=== PATIENT | male | born 1980 | race Caucasian/White ===

== ENCOUNTER 2016-07-15 01:39 | Emergency (ER) | payer SELFPAY ==
[~2016-07-15] VITALS: Ht 177.8 cm; Wt 90.0 kg
[2016-07-15 01:47] VITALS: BP 178/109; PULSE 98; RESP 18; TEMP 97.8; O2SAT 96
--- NOTE | 2016-07-15 02:00 | PD ---
HPI Chief Complaint: Alcohol/Drug Intoxication Time Seen by Provider: 01:40 Travel History International Travel<30 days: No Contact w/Intl Traveler<30days: No Traveled to known affect area: No History of Present Illness HPI The patient is a 35-year-old male who presents emergency department for alcohol intoxication. The patient states his grandmother recently , he was sober for 3 months, but recently started drinking once again. The patient states he drank a fifth of Jagermeister last night. The patient states he does not feel "right", feels like he has numbness and tingling to the upper extremity is bilateral and feels "off". Patient also has intermittent thoughts of suicide, but does not have an actual suicide plan. He does note increasing depression after his grandmother and now feels sorry for drinking once again. He denies any hallucinations or delusions. Denies any chest pain, shortness breath, nausea, vomiting, or abdominal pain. Symptoms are moderate, possibly exacerbated by alcohol intake, and there are no current alleviating factors. COUNT INCLUDES THE [facility] Past Medical History Hypertension: Yes Medical other: Yes (ETOH ABUSE PER PATIENT ) Past Surgical History Abdominal Surgery: Yes ( hernia repair as an ) Social History Alcohol Use: Yes (pint of vodka per day) Tobacco Use: No (CIGARS OCC) Substance Use: Yes (etoh and marijuana) Allergies-Medications (Allergen,Severity, Reaction): Coded Allergies: Aspirin (Verified Allergy, Severe, 07/15/16) Reported Meds & Prescriptions Reported Meds & Active Scripts Active No Active Prescriptions or Reported Medications Review of Systems Except as stated in HPI: all other systems reviewed are Neg General / Constitutional: No: Fever Cardiovascular: No: Chest Pain or Discomfort Respiratory: No: Shortness of Breath Gastrointestinal: No: Nausea, Vomiting, Abdominal Pain Neurologic: Positive: Paresthesia, Sensory Disturbance Psychiatric: Positive: Depression, Suicidal Ideations, Substance Abuse Physical Exam Narrative GENERAL: Awake, alert, 35 year old who appears his stated age and is slightly intoxicated. SKIN: Focused skin assessment warm/dry. HEAD: Atraumatic. Normocephalic. EYES: Pupils equal and round. Pupils are 3 mm is bilateral and reactive. ENT: No nasal bleeding or discharge. Breath smells of alcohol. NECK: Trachea midline. No JVD. CARDIOVASCULAR: Regular rate and rhythm. No murmur appreciated. RESPIRATORY: No accessory muscle use. Clear to auscultation. Breath sounds equal bilaterally. GASTROINTESTINAL: Abdomen soft, non-tender, nondistended. No rebound tenderness. MUSCULOSKELETAL: No obvious deformities. No clubbing. No cyanosis. No edema. NEUROLOGICAL: Awake and alert. No obvious cranial nerve deficits. Motor grossly within normal limits. Normal speech. Nonfocal. Oriented 4. Follows commands without difficulty. PSYCHIATRIC: Appropriate mood and affect; insight and judgment normal. Data Data Last Documented VS Vital Signs Date Time Temp Pulse Resp B/P Pulse Ox O2 Delivery O2 Flow Rate FiO2 07/15/16 01:47 97.8 98 18 178/109 96 Room Air Orders Complete Blood Count With Diff (07/15/16 01:46) Comprehensive Metabolic Panel (07/15/16 01:46) Psych Screen (07/15/16 01:46) Drug Screen, Random Urine (07/15/16 01:46) Alcohol (Ethanol) (07/15/16 01:46) Labs Laboratory Tests Test 07/15/16 07/15/16 01:50 02:11 White Blood Count 7.5 TH/MM3 Red Blood Count 4.99 MIL/MM3 Hemoglobin 14.6 GM/DL Hematocrit 43.2 % Mean Corpuscular Volume 86.5 FL Mean Corpuscular Hemoglobin 29.3 PG Mean Corpuscular Hemoglobin 33.9 % Concent Red Cell Distribution Width 14.2 % Platelet Count 265 TH/MM3 Mean Platelet Volume 6.9 FL Neutrophils (%) (Auto) 44.7 % Lymphocytes (%) (Auto) 46.7 % Monocytes (%) (Auto) 7.6 % Eosinophils (%) (Auto) 0.6 % Basophils (%) (Auto) 0.4 % Neutrophils # (Auto) 3.3 TH/MM3 Lymphocytes # (Auto) 3.5 TH/MM3 Monocytes # (Auto) 0.6 TH/MM3 Eosinophils # (Auto) 0.0 TH/MM3 Basophils # (Auto) 0.0 TH/MM3 CBC Comment DIFF FINAL Differential Comment Sodium Level 143 MEQ/L Potassium Level 3.2 MEQ/L Chloride Level 106 MEQ/L Carbon Dioxide Level 27.6 MEQ/L Anion Gap 9 MEQ/L Blood Urea Nitrogen 6 MG/DL Creatinine 0.96 MG/DL Estimat Glomerular Filtration 90 ML/MIN Rate Random Glucose 132 MG/DL Calcium Level 8.3 MG/DL Total Bilirubin 0.2 MG/DL Aspartate Amino Transf 49 U/L (AST/SGOT) Alanine Aminotransferase 46 U/L (ALT/SGPT) Alkaline Phosphatase 104 U/L Total Protein 8.1 GM/DL Albumin 4.3 GM/DL Ethyl Alcohol Level 404 MG/DL Urine Opiates Screen NEG Urine Barbiturates Screen NEG Urine Amphetamines Screen NEG Urine Benzodiazepines Screen NEG Urine Cocaine Screen NEG Urine Cannabinoids Screen POS MDM Medical Decision Making Medical Screen Exam Complete: Yes Emergency Medical Condition: Yes Medical Record Reviewed: Yes Interpretation(s) Laboratory Tests Test 07/15/16 07/15/16 01:50 02:11 White Blood Count 7.5 TH/MM3 Red Blood Count 4.99 MIL/MM3 Hemoglobin 14.6 GM/DL Hematocrit 43.2 % Mean Corpuscular Volume 86.5 FL Mean Corpuscular Hemoglobin 29.3 PG Mean Corpuscular Hemoglobin 33.9 % Concent Red Cell Distribution Width 14.2 % Platelet Count 265 TH/MM3 Mean Platelet Volume 6.9 FL Neutrophils (%) (Auto) 44.7 % Lymphocytes (%) (Auto) 46.7 % Monocytes (%) (Auto) 7.6 % Eosinophils (%) (Auto) 0.6 % Basophils (%) (Auto) 0.4 % Neutrophils # (Auto) 3.3 TH/MM3 Lymphocytes # (Auto) 3.5 TH/MM3 Monocytes # (Auto) 0.6 TH/MM3 Eosinophils # (Auto) 0.0 TH/MM3 Basophils # (Auto) 0.0 TH/MM3 CBC Comment DIFF FINAL Differential Comment Sodium Level 143 MEQ/L Potassium Level 3.2 MEQ/L Chloride Level 106 MEQ/L Carbon Dioxide Level 27.6 MEQ/L Anion Gap 9 MEQ/L Blood Urea Nitrogen 6 MG/DL Creatinine 0.96 MG/DL Estimat Glomerular Filtration 90 ML/MIN Rate Random Glucose 132 MG/DL Calcium Level 8.3 MG/DL Total Bilirubin 0.2 MG/DL Aspartate Amino Transf 49 U/L (AST/SGOT) Alanine Aminotransferase 46 U/L (ALT/SGPT) Alkaline Phosphatase 104 U/L Total Protein 8.1 GM/DL Albumin 4.3 GM/DL Ethyl Alcohol Level 404 MG/DL Urine Opiates Screen NEG Urine Barbiturates Screen NEG Urine Amphetamines Screen NEG Urine Benzodiazepines Screen NEG Urine Cocaine Screen NEG Urine Cannabinoids Screen POS Differential Diagnosis Differential diagnosis includes alcohol intoxication, hyponatremia, hypocalcemia , depressive disorder NOS, adjustment reaction, substance abuse. Narrative Course IV was established, labs are drawn and sent, and the patient was placed on cardiac telemetry monitoring and continuous pulse oximetry monitoring. Alcohol level was sent to lab. Psychiatric evaluation was ordered. The patient's labs are unremarkable except for alcohol level of 44. Patient is medically clear to be evaluated by psychiatry. Disposition as per psych. Diagnosis Primary Impression: Substance induced mood disorder Additional Impression: Adjustment reaction Qualified Code: F43.21 - Adjustment disorder with depressed mood Scripts No Active Prescriptions or Reported Meds Condition: Stable Richmond Nails MD Jul 15, 2016 01:59
[2016-07-15 02:16] LABS: AUTOMATED NEUTROPHIL # 3.3 TH/MM3 (1.8-7.7); BASOPHIL % 0.4 % (0.0-2.0); EOSINOPHIL % 0.6 % (0.0-4.0); HEMATOCRIT 43.2 % (39.0-51.0); HEMO FLAGS DIFF FINAL; LYMPH % 46.7 % (9.0-44.0); LYMPHOCYTE # 3.5 TH/MM3 (1.0-4.8); MEAN CELL VOLUME 86.5 FL (80.0-100.0); MEAN CORPUSCULAR HEMOGLOBIN 29.3 PG (27.0-34.0); MEAN CORPUSCULAR HGB CONC 33.9 % (32.0-36.0); MONO % 7.6 % (0.0-8.0); NEUT % 44.7 % (16.0-70.0); PLATELET COUNT 265 TH/MM3 (150-450); RED BLOOD COUNT 4.99 MIL/MM3 (4.50-5.90); RED CELL DISTRIBUTION WIDTH 14.2 % (11.6-17.2); WHITE BLOOD COUNT 7.5 TH/MM3 (4.0-11.0)
[2016-07-15 02:26] LABS: AMPHETAMINE, URINE NEG (NEG); BARBITURATES, URINE NEG (NEG); COCAINE, URINE NEG (NEG)
[2016-07-15 02:37] LABS: ALT (GPT) 46 U/L (12-78); AST (GOT) 49 U/L (15-37); BICARBONATE 27.6 MEQ/L (21.0-32.0); BLOOD UREA NITROGEN 6 MG/DL (7-18); CHLORIDE 106 MEQ/L (98-107); GLOMERULAR FILTRATION RATE 90 ML/MIN (>89); POTASSIUM 3.2 MEQ/L (3.5-5.1); SODIUM (NA) 143 MEQ/L (136-145)
[2016-07-15 02:38] LABS: ANION GAP 9 MEQ/L (5-15)
[2016-07-15 02:42] LABS: ALKALINE PHOSPHATASE 104 U/L (45-117); TOTAL BILIRUBIN ADULT 0.2 MG/DL (0.2-1.0)
[2016-07-15 03:40] VITALS: BP 161/101; PULSE 99; RESP 16; TEMP 97.6; O2SAT 97
[2016-07-15 04:08] VITALS: O2SAT 96
[2016-07-15] MEDS ORDERED: ONDANSETRON HCL 4 MG/2 ML VIAL ONE (07:39)
[2016-07-15] MEDS ORDERED: ONDANSETRON HCL 4 MG/2 ML VIAL IV PUSH ONE (07:45)
[2016-07-15] MEDS ORDERED: LORazepam 2 MG/ML VIAL IV PUSH ONE (07:45)
[2016-07-15 08:39] VITALS: BP 143/89; PULSE 106; RESP 16; TEMP 97.6; O2SAT 94
--- NOTE | 2016-07-15 10:23 | PD ---
History of Present Illness Chief Complaint: Alcohol/Drug Intoxication Time Seen by Provider: 10:15 Travel History International Travel<30 Days: No Contact w/Intl Traveler<30days: No Known affected area: No Legal Status Legal Status: Garcia Act Garcia Act Signed By: History of Present Illness: This is a 35-year-old male who presented last night under a Garcia act for reported suicidal ideation. The patient was intoxicated with an alcohol level greater than 400 and is currently stating he is not suicidal. He does want to be evaluated physically because of tremulousness and numbness. He states he has a fear of going through alcohol withdrawal. He had been sober for 3 months but recently lost his grandmother and "fell off the wan". He was treated in [facility], at a facility called [facility] earlier this year. Since his discharge however he has not gone to AA meetings, obtained a sponsor, work the steps, etc. He would like to have counseling by this physician in the emergency department that was told that his not a request that can be fulfilled at this time. He was encouraged to go back to AA meetings and pickup a white chip. He was also encouraged to obtain a sponsor for counseling. He has no psychotic symptoms and his cognition is intact and he is no longer intoxicated. [facility] Past Medical History Medical History: Denies Significant Hx Hypertension: Yes Medical other: Yes (ETOH ABUSE PER PATIENT ) Past Surgical History Abdominal Surgery: Yes ( hernia repair as an infant) Psychiatric History Psychiatric History Hx Psychiatric Treatment: Denies history of treatment but believes he has a history of depression and anxiety. History of Inpatient Treatment: No Guns or firearms in home: No Social History Hx Alcohol Use: Yes (pint of vodka per day) Hx Tobacco Use: No (CIGARS OCC) Hx Substance Use: Yes (etoh and marijuana) Allergies-Medications (Allergen,Severity, Reaction): Coded Allergies: Aspirin (Verified Allergy, Severe, 07/15/16) Reported Meds & Prescriptions Reported Meds & Active Scripts Active No Active Prescriptions or Reported Medications Review of Systems ROS Limitations: Clinical Condition Exam Exam Limitations: Clinical Condition Alert: Yes [place]: Person, Place, Date, Situation Mood: Calm Affect: Appropriate Speech: Clear, Logical Eye Contact: Normal Memory Intact: Immediate, Recent, Remote Insight/Judgement Adequate except for alcohol and marijuana use. MDM Medical Decision Making Medical Record Reviewed: Yes Assessment/Plan Patient is being discharged home and it would be counter therapeutic to admit him to psychiatry with recent alcoholism relapse. Furthermore, in this physician's opinion, he does not meet criteria for a Garcia act. Patient needs to return to Alcoholics Anonymous and work the recovery program. Orders Complete Blood Count With Diff (07/15/16 01:46) Comprehensive Metabolic Panel (07/15/16 01:46) Psych Screen (07/15/16 01:46) Drug Screen, Random Urine (07/15/16 01:46) Alcohol (Ethanol) (07/15/16 01:46) Ondansetron Inj (Zofran Inj) (07/15/16 07:39) Lorazepam Inj (Ativan Inj) (07/15/16 07:45) Ondansetron Inj (Zofran Inj) (07/15/16 07:45) Diet Regular Basic (07/15/16 Breakfast) Results Vital Signs Date Time Temp Pulse Resp B/P Pulse Ox O2 Delivery O2 Flow Rate FiO2 07/15/16 08:39 97.6 106 16 143/89 94 Room Air 07/15/16 04:08 96 Room Air 07/15/16 03:40 97.6 99 16 161/101 97 07/15/16 01:47 97.8 98 18 178/109 96 Room Air Laboratory Tests Test 07/15/16 07/15/16 01:50 02:11 White Blood Count 7.5 Red Blood Count 4.99 Hemoglobin 14.6 Hematocrit 43.2 Mean Corpuscular Volume 86.5 Mean Corpuscular Hemoglobin 29.3 Mean Corpuscular Hemoglobin 33.9 Concent Red Cell Distribution Width 14.2 Platelet Count 265 Mean Platelet Volume 6.9 Neutrophils (%) (Auto) 44.7 Lymphocytes (%) (Auto) 46.7 Monocytes (%) (Auto) 7.6 Eosinophils (%) (Auto) 0.6 Basophils (%) (Auto) 0.4 Neutrophils # (Auto) 3.3 Lymphocytes # (Auto) 3.5 Monocytes # (Auto) 0.6 Eosinophils # (Auto) 0.0 Basophils # (Auto) 0.0 CBC Comment DIFF FINAL Differential Comment Sodium Level 143 Potassium Level 3.2 Chloride Level 106 Carbon Dioxide Level 27.6 Anion Gap 9 Blood Urea Nitrogen 6 Creatinine 0.96 Estimat Glomerular Filtration 90 Rate Random Glucose 132 Calcium Level 8.3 Total Bilirubin 0.2 Aspartate Amino Transf 49 (AST/SGOT) Alanine Aminotransferase 46 (ALT/SGPT) Alkaline Phosphatase 104 Total Protein 8.1 Albumin 4.3 Ethyl Alcohol Level 404 Urine Opiates Screen NEG Urine Barbiturates Screen NEG Urine Amphetamines Screen NEG Urine Benzodiazepines Screen NEG Urine Cocaine Screen NEG Urine Cannabinoids Screen POS Diagnosis Primary Impression: Alcohol abuse Prescriptions No Active Prescriptions or Reported Meds Condition: Stable Yuri Francisco MD Jul 15, 2016 10:22
== END 2016-07-15 11:49 | disposition home or self-care (01) ==
LOC: NEPE 01:39
DX: F39 Unspecified mood [affective] disorder (principal); F43.20 Adjustment disorder, unspecified; F43.21 Adjustment disorder with depressed mood; R45.851 Suicidal ideations; R20.0 Anesthesia of skin
CPT/HCPCS: 80053; 80307; 85025; 96374; 96375; 99284; J2060; J2405